=== PATIENT | female | born 1985 | race Caucasian/White ===

== ENCOUNTER → 2018-08-04 09:16 | Outpatient (CLI) | payer OTHER, SELFPAY ==
--- NOTE | 2018-08-04 | DI.US.S_ITS ---
PROCEDURE: US PELVIC COMPLETE INDICATIONS: ACUTE PELVIC PAIN TECHNIQUE: Real-time scanning was performed of the pelvic organs, with image documentation. Additional endovaginal scanning was necessary due to incomplete visualization of the adnexal and endometrial structures by transabdominal scanning. COMPARISON: [facility], , PELVIC COMPLETE, 07/13/2013, 14:39. FINDINGS: Transabdominal scanning: Limited scanning through the kidneys shows no hydronephrosis. No pathologic free abdominal or pelvic fluid. Anteverted uterus measures 10.1 x 3.3 x 4.7 cm. Endovaginal scanning: Uterus: Uterus is normal in size at 9.5 cm in length. The endometrium measures 11 mm in combined thickness. Ovaries: The right ovary measures 3.9 x 1.9 x 3.6 cm and has a normal follicular echotexture. Left ovary measures 3.6 x 1.8 x 3.2 cm and is less well seen secondary to its position slightly behind the uterus. IMPRESSION: Normal pelvic ultrasound. Interval removal of prior IUD. Dictated by: Serenity Rodarte M.D. on 08/04/2018 at 11:27 Approved by: Serenity Rodarte M.D. on 08/04/2018 at 11:35
== END ==
PROVIDERS: Family Provider Family Medicine; PCP Family Medicine; Visit Provider Nurse Practitioner Family
DX: R10.2 Pelvic and perineal pain (principal)
CPT/HCPCS: 76830; 76856

== ENCOUNTER → 2018-09-08 14:30 | Outpatient (CLI) | payer OTHER, SELFPAY ==
--- NOTE | 2018-09-08 | DI.US.S_ITS ---
PROCEDURE: US ABDOMEN COMPLETE INDICATIONS: ABDOMINAL PAIN TECHNIQUE: Real-time scanning was performed of the abdominal and retroperitoneal organs, with image documentation. COMPARISON: US, ABDOMEN SONOGRAM, 06/15/2012, 22:45. FINDINGS: Liver: Liver is normal in size and homogeneous in echotexture. Gallbladder: Several gallstones. No gallbladder wall thickening or pericholecystic fluid. Mild right upper quadrant tenderness. Biliary ducts: Intrahepatic bile ducts are non-dilated. Extrahepatic bile duct caliber measures 6.1 mm. Normal is 6-7 mm or less in diameter, or 10 mm or less post-cholecystectomy. Pancreas: Visualized portions of the pancreas are sonographically normal. Spleen: Spleen is normal in size and homogeneous in echotexture. Kidneys: Kidneys are normal in size and echotexture. Right kidney measures 11.8 cm long; left kidney measures 13.0 cm long. Right renal cortical thinning measuring 8.0 mm. No hydronephrosis or nephrolithiasis. No solid masses. Aorta: Visualized aorta is normal in caliber at less than 3 cm. Iliacs: Proximal common iliac arteries are normal in caliber at less than 2.5 cm. IVC: Intrahepatic inferior vena cava is patent. Miscellaneous: No free abdominal fluid. IMPRESSION: 1. Cholelithiasis without evidence of acute cholecystitis at this time. 2. Mild right renal cortical thinning. Dictated by: Wes PAINTER Interpreted: Stacey Miller MD on 09/08/2018 at 16:08 Approved by: Stacey Miller M.D. on 09/08/2018 at 23:46
== END ==
PROVIDERS: PCP Family Medicine; Visit Provider Family Medicine
DX: R10.9 Unspecified abdominal pain (principal); K80.20 Calculus of gallbladder without cholecystitis without obstruction
CPT/HCPCS: 76700

== ENCOUNTER → 2019-04-17 09:08 | Outpatient (CLI) | payer OTHER, SELFPAY ==
--- NOTE | 2019-04-17 | DI.US.S_ITS ---
LIMITED ULTRASOUND OF RIGHT BREAST: 04/17/2019 CLINICAL: Focal right breast pain. Comparison is made to exam dated: 04/17/2019 [facility]. Real-time ultrasound of the right breast 9 o'clock region was performed. Mcgill scale images of the real-time examination were reviewed. No significant abnormalities were seen sonographically in the right breast. Specifically, no finding to correspond to the patient's area of pain. IMPRESSION: NEGATIVE There is no sonographic correlate to the patient's pain and no evidence of malignancy. Return to annual mammogram screening schedule is recommended. Findings and recommendations were conveyed to the patient at time of exam. This exam was interpreted at Station ID: [id number]. Electronically Signed By: Serenity randall/:04/17/2019 11:27:46 letter sent: Normal Exam Ultrasound BI-RADS: 1 Negative
--- NOTE | 2019-04-17 | DI.US.S_ITS ---
LIMITED ULTRASOUND OF LEFT BREAST: 04/17/2019 CLINICAL: Focal left breast pain. Nipple discharge, left breast, not bloody. Comparison is made to exam dated: 04/17/2019 [facility]. Real-time ultrasound of the left breast 3 o'clock, and retroareolar regions was performed. Mcgill scale images of the real-time examination were reviewed. No significant abnormalities were seen sonographically in the left breast. Specifically, no finding to correspond to the patient's nipple discharge or lateral breast pain. IMPRESSION: NEGATIVE There is no sonographic correlate to the patient's pain or nipple discharge, and no evidence of malignancy. Return to annual mammogram screening schedule is recommended. Findings and recommendations were conveyed to the patient at time of exam. This exam was interpreted at Station ID: [id number]. Electronically Signed By: Serenity randall/:04/17/2019 11:29:28 letter sent: Normal Exam Ultrasound BI-RADS: 1 Negative
--- NOTE | 2019-04-17 | DI.MG.S_ITS ---
BILATERAL DIGITAL DIAGNOSTIC MAMMOGRAM 3D/2D: 04/17/2019 CLINICAL: Bilateral breast tenderness and discharge. Baseline exam. No prior exams were available for comparison. The tissue of both breasts is heterogeneously dense. This may lower the sensitivity of mammography. No significant masses, calcifications, or other findings are seen in either breast. Specifically, no finding to correspond to the patient's pain or left breast nipple discharge. IMPRESSION: INCOMPLETE: NEEDS ADDITIONAL IMAGING EVALUATION There is no abnormality seen in either breast to correspond with the pain. There is no abnormality seen in the left breast to correspond with the non-bloody discharge from the nipple, however, ultrasound is recommended. Bilateral ultrasound was performed immediately following this exam to evaluate all areas of concern. This exam was interpreted at Station ID: [id number]. NOTE: For mammograms, a report in lay terms will be sent to the patient. Approximately 15% of breast malignancies will not be visualized mammographically. In the management of a palpable breast mass, a negative mammogram must not discourage biopsy of a clinically suspicious lesion. Electronically Signed By: Serenity randall/:04/17/2019 10:50:15 ACR BI-RADS Category 0: Incomplete [id number]
== END ==
PROVIDERS: PCP Family Medicine; Visit Provider Internal Medicine
DX: R92.8 Other abnormal and inconclusive findings on diagnostic imaging of breast (principal); N64.4 Mastodynia; N64.52 Nipple discharge
CPT/HCPCS: 76642; 77066; G0279

== ENCOUNTER → 2020-03-20 08:40 | Outpatient (CLI) | payer OTHER, SELFPAY ==
--- NOTE | 2020-03-20 | DI.US.S_ITS ---
ULTRASOUND OF RIGHT BREAST: 03/20/2020 CLINICAL: Palpable right breast lump. Comparison is made to exams dated: 03/20/2020 mammogram, 04/17/2019 ultrasound, and 04/17/2019 mammogram - [facility]. Color flow and Doppler ultrasound of the right breast were performed. No ultrasound findings are identified. IMPRESSION: BENIGN There is no sonographic evidence of malignancy. There is no abnormality seen in the right breast to correspond with the area of clinical concern and mammography finding in the lower inner quadrant which is consistent with normal fibroglandular tissue, however, clinical followup is recommended. Return to mammogram screening schedule is recommended. This exam was interpreted at Station ID: [id number]. Electronically Signed By: Fito Gr acr/:03/20/2020 11:55:29 letter sent: Clinical Evaluation Ultrasound BI-RADS: 2 Benign
--- NOTE | 2020-03-20 | DI.MG.S_ITS ---
BILATERAL DIGITAL DIAGNOSTIC MAMMOGRAM 3D/2D: 03/20/2020 CLINICAL: Right breast lump. Comparison is made to exam dated: 04/17/2019 [facility]. The tissue of both breasts is heterogeneously dense. This may lower the sensitivity of mammography. There is a stable 2 cm asymmetry with an indistinct margin in the right breast at 6 o'clock anterior depth. This is not seen in additional views. No other significant masses, calcifications, or other findings are seen in either breast. IMPRESSION: INCOMPLETE: NEEDS ADDITIONAL IMAGING EVALUATION The stable 2 cm asymmetry in the right breast is consistent with fibroglandular tissue and is indeterminate but stable compared to the prior mammogram. An ultrasound is recommended. There is no abnormality seen in the right breast to correspond with the area of clinical concern in the lower outer quadrant. This exam was interpreted at Station ID: [id number]. NOTE: For mammograms, a report in lay terms will be sent to the patient. Approximately 15% of breast malignancies will not be visualized mammographically. In the management of a palpable breast mass, a negative mammogram must not discourage biopsy of a clinically suspicious lesion. Electronically Signed By: Fito Gr acr/:03/20/2020 09:50:37 letter sent: Additional Imaging Needed ACR BI-RADS Category 0: Incomplete [id number]
== END ==
PROVIDERS: PCP Family Medicine; Referring Provider Internal Medicine; Visit Provider Internal Medicine
DX: R92.8 Other abnormal and inconclusive findings on diagnostic imaging of breast (principal); N63.10 Unspecified lump in the right breast, unspecified quadrant
CPT/HCPCS: 76642; 77066; G0279

== ENCOUNTER → 2020-11-11 18:18 | Outpatient (CLI) | payer OTHER, SELFPAY ==
--- NOTE | 2020-11-11 | DI.MRI.S_ITS ---
PROCEDURE: MR HEAD/BRAIN WO CON INDICATIONS: Tension-type headache, unspecified TECHNIQUE: Noncontrast axial T1 spin echo, axial T2 fast spin echo, sagittal and axial FLAIR, coronal T2 fast spin echo, axial gradient echo, axial diffusion and ADC through the brain. COMPARISON: None. FINDINGS: Image quality: Excellent. CSF Spaces: Basal cisterns are patent. No extra-axial fluid collections. Ventricles are normal in size and shape. Brain: No intracranial masses or hemorrhage. Mcgill/white matter interface is normal. Brainstem appears normal. Diffusion-weighted images demonstrate no acute ischemic insult. No chronic ischemic insults. Normal intravascular flow voids are present. Skull and face: Calvarium has normal marrow signal. Orbits appear normal. Sinuses: There is a mucous retention cyst seen within the medial aspect of the right maxillary sinus. Sinuses and mastoids are otherwise clear. IMPRESSION: Unremarkable intracranial study, without an imaging explanation found for the patient's presenting history of headache. Dictated by: Jarred Lozano M.D. on 11/11/2020 at 17:58 Approved by: Jarred Lozano M.D. on 11/11/2020 at 18:00
== END ==
PROVIDERS: PCP Family Medicine; Referring Provider Family Medicine; Visit Provider Family Medicine
DX: G44.209 Tension-type headache, unspecified, not intractable (principal); J34.1 Cyst and mucocele of nose and nasal sinus
CPT/HCPCS: 70551